=== PATIENT | male | born 1955 | race African-American/Black ===

== ENCOUNTER 2019-01-30 12:07 | Emergency (ER) | payer MEDICAID, MEDICARE ==
[~2019-01-30] VITALS: Ht 177.8 cm; Wt 77.0 kg
[~2019-01-30 12:07] MED LIST: AMLO2.5T45 PO; ASPI-986 PO; BUPR75TA3 PO; CITA10TA16 PO; DIVAL250 PO; PARO10TA87 PO; QUET25TA PO
[2019-01-30] MEDS ORDERED: ONDANSETRON HCL 4MG/2ML INJ IV STA (12:24)
[2019-01-30] MEDS ORDERED: SODIUM CHLORIDE 0.9% 1,000 ML IV ONE (12:24)
[2019-01-30] MEDS ORDERED: MORPHINE SULFATE 4 MG/ML CPJ (NOT FOR IM USE) IV STA (12:24)
[2019-01-30 13:14] LABS: EOSINOPHILS % 0.7 % (0.0-5.0); HEMATOCRIT. 43.5 % (42.0-52.0); HEMOGLOBIN. 14.4 g/dL (14.0-18.0); LYMPHOCYTES % 20.4 % (20.0-50.0); MEAN CORPUSCULAR HEMOGLOBIN 28.4 pg (28.0-32.0); MEAN CORPUSCULAR VOLUME 85.7 fL (80.0-94.0); MEAN PLATELET VOLUME 9.1 fl (7.4-10.4); MONOCYTES % 10.9 % (2.0-8.0); PLATELET 263 x1000/uL (130-400); RED BLOOD CELL COUNT 5.08 mill/uL (4.7-6.1); RED CELL DISTRIBUTION WIDTH 14.5 % (11.6-14.6)
[2019-01-30 13:19] LABS: CHLORIDE 100 mEq/L (98-107)
[2019-01-30 13:25] LABS: ETHANOL BLOOD < 10 mg/dL
[2019-01-30] MEDS ORDERED: HYDRALAZINE 20MG/ML VIAL IV ONE (14:15)
[2019-01-30 14:27] LABS: CLARITY URINE CLEAR (CLEAR); COLOR URINE YELLOW (YELLOW); KETONES URINE 1+ (NEGATIVE); LEUKOCYTE ESTERASE URINE NEGATIVE (NEGATIVE); NITRITE URINE NEGATIVE (NEGATIVE); OCCULT BLOOD URINE NEGATIVE (NEGATIVE); PH URINE 6.5 (4.5-8.0); PROTEIN URINE NEGATIVE (NEGATIVE); SPECIFIC GRAVITY URINE 1.012 (1.005-1.030)
[2019-01-30 14:49] LABS: *AMPHETAMINES SCREEN URINE PRESUMTIVE POSITIVE (NEGATIVE); *BARBITURATES SCREEN URINE NEGATIVE (NEGATIVE); *BENZODIAZEPINES SCREEN URINE NEGATIVE (NEGATIVE); *COCAINE SCREEN URINE NEGATIVE (NEGATIVE)
[2019-01-30 14:50] LABS: CANNABINOID URINE SCREEN PRESUMTIVE POSITIVE (NEGATIVE); METHADONE URINE SCREEN NEGATIVE (NEGATIVE); OPIATES URINE SCREEN PRESUMTIVE POSITIVE (NEGATIVE); PHENCYCLIDINE URINE SCREEN NEGATIVE (NEGATIVE)
[2019-01-30] MEDS ORDERED: ASPIRIN 325MG TABLET PO ONE (15:00)
[2019-01-30 17:40] VITALS: BP 169/94
== END 2019-01-30 17:40 | disposition home or self-care (01) ==
LOC: ER 12:07 → CANBEDREQ 19:44
DX: I20.0 Unstable angina (principal); I10 Essential (primary) hypertension; G89.29 Other chronic pain; M54.9 Dorsalgia, unspecified; Z79.82 Long term (current) use of aspirin; Z79.899 Other long term (current) drug therapy
CPT/HCPCS: 36415; 71045; 72131; 80053; 80305; 80320; 81003; 84484; 85025; 93005; 96374; 96375; 99284; J0360; J2270; J2405; J7030; Z7610; G0480

== ENCOUNTER 2019-08-18 08:09 | Inpatient (IN) | payer MEDICAID, MEDICARE ==
[~2019-08-18] VITALS: Ht 266.7 cm; Wt 87.1 kg
[2019-08-18] MEDS ORDERED: FUROSEMIDE 20MG/2ML VIAL IVP ONE (08:30)
[2019-08-18] MEDS ORDERED: ALBUTEROL 6.7GM HFA INHALER ORI ONE (08:30)
[2019-08-18] MEDS ORDERED: AMLODIPINE 2.5MG TABLET PO ONE (08:30)
[2019-08-18] MEDS ORDERED: AZITHROMYCIN 500 MG in DEXT 5% WATER 250 ML IV STA (09:37)
[2019-08-18] MEDS ORDERED: CEFTRIAXONE 1 G PREMIX 50 ML IV ONE (09:45)
[2019-08-18] MEDS ORDERED: ENOXAPARIN 40MG/0.4ML SYR SUBCUT SCH (10:00)
[2019-08-18] MEDS ORDERED: CLONIDINE 0.1MG TABLET PO PRN (10:00)
[2019-08-18] MEDS ORDERED: ACETAMINOPHEN 325MG TABLET PO PRN (10:00)
[2019-08-18] MEDS ORDERED: ONDANSETRON HCL 4MG/2ML INJ IV PRN (10:00)
[2019-08-18 10:14] LABS: BASOPHILS % 0.6 % (0.0-2.0); EOSINOPHILS % 0.1 % (0.0-5.0); HEMATOCRIT. 39.9 % (42.0-52.0); MEAN CORPUSCULAR HEMOGLOBIN 27.2 pg (28.0-32.0); MEAN CORPUSCULAR VOLUME 83.2 fL (80.0-94.0); MEAN PLATELET VOLUME 8.8 fl (7.4-10.4); MONOCYTES % 7.6 % (2.0-8.0); NEUTROPHILS % 80.7 % (40.0-76.0); PLATELET 157 x1000/uL (130-400); RED BLOOD CELL COUNT 4.79 mill/uL (4.7-6.1); RED CELL DISTRIBUTION WIDTH 22.4 % (11.6-14.6)
[2019-08-18 10:22] LABS: CHLORIDE 106 mEq/L (98-107)
[2019-08-18 10:25] LABS: CLARITY URINE CLEAR (CLEAR); COLOR URINE DARK YELLOW (YELLOW); KETONES URINE TRACE (NEGATIVE); LEUKOCYTE ESTERASE URINE TRACE (NEGATIVE); NITRITE URINE NEGATIVE (NEGATIVE); OCCULT BLOOD URINE 1+ (NEGATIVE); PROTEIN URINE 2+ (NEGATIVE); SPECIFIC GRAVITY URINE 1.031 (1.005-1.030)
[2019-08-18 10:27] LABS: ETHANOL BLOOD < 10 mg/dL
[2019-08-18 10:31] LABS: CREATINE KINASE 195 IU/L (39-308)
[2019-08-18 10:34] LABS: D-DIMER 11.46 mg/L FEU (<0.50); INR 1.8; PROTHROMBIN TIME 18.1 sec (9.6-11.0); VALPROIC ACID < 3.0 ug/mL (50-100)
[2019-08-18 10:35] LABS: *AMPHETAMINES SCREEN URINE PRESUMTIVE POSITIVE (NEGATIVE); *BARBITURATES SCREEN URINE NEGATIVE (NEGATIVE); *BENZODIAZEPINES SCREEN URINE NEGATIVE (NEGATIVE); *COCAINE SCREEN URINE NEGATIVE (NEGATIVE)
[2019-08-18 10:36] LABS: CANNABINOID URINE SCREEN NEGATIVE (NEGATIVE); METHADONE URINE SCREEN NEGATIVE (NEGATIVE); OPIATES URINE SCREEN NEGATIVE (NEGATIVE); PHENCYCLIDINE URINE SCREEN NEGATIVE (NEGATIVE)
[2019-08-18 10:43] LABS: PLATELET ESTIMATE NORMAL
[2019-08-18] MEDS ORDERED: ASPIRIN 325MG EC TABLET PO NR (11:00)
[2019-08-18] MEDS ORDERED: AMLODIPINE 2.5MG TABLET PO SCH (12:00)
[2019-08-18] MEDS ORDERED: AZITHROMYCIN 500 MG in DEXT 5% WATER 250 ML IV SCH (12:00)
[2019-08-18] MEDS ORDERED: CEFTRIAXONE 1 G PREMIX 50 ML IV SCH (12:00)
[2019-08-18 16:05] VITALS: BP_SYST 136; BP_SYST 150; BP_DIAS 94
[2019-08-18] MEDS: AMLODIPINE 2.5MG TABLET PO SCH ×2 (16:48→22:57)
[2019-08-18] MEDS: DIVALPROEX SODIUM 250MG DR TABLET PO SCH ×2 (16:48→17:00)
[2019-08-18] MEDS: ENOXAPARIN 80MG/0.8ML SYR SUBCUT SCH ×2 (16:49→22:57)
[2019-08-18 20:00] VITALS: BP_SYST 103; BP_SYST 136; BP_DIAS 69; BP_DIAS 92
[2019-08-18] MEDS ORDERED: QUETIAPINE FUMARATE 50MG TABLET PO SCH (21:00)
[2019-08-18 23:52] VITALS: BP 121/82
[2019-08-19] VITALS: BP 127/55
[2019-08-19 01:54] VITALS: BP 116/69
[2019-08-19 02:16] LABS: INR 1.7; PROTHROMBIN TIME 17.6 sec (9.6-11.0)
[2019-08-19 02:22] LABS: BG BASE EXCESS 0.2 mmol/L (-2.0-2.0); BG CARBOXYHEMOGLOBIN 1.6 % (0.5-1.5); BG DEOXYHEMOGLOBIN 3.9 % (0.0-5.0); BG FRACTION INSPIRED OXYGEN 32; BG HCO3 ACT 23.7 mmol/L (22.0-26.0); BG METHEMOGLOBIN 0.2 % (0.0-1.5); BG OXYHEMOGLOBIN 94.3 % (94.0-97.0); BG PCO2 34.5 mmHg (35.0-45.0); BG PH 7.454 (7.350-7.450); BG PO2 80.7 mmHg (75.0-100.0); BG SAMPLE SITE RIGHT BRACHIAL; BG VENT MODE NASAL CANNULA
[2019-08-19 04:00] VITALS: BP 97/56
[2019-08-19 05:15] VITALS: BP 108/64
[2019-08-19 08:00] VITALS: BP 108/80
[2019-08-19 08:03] LABS: BASOPHILS % 0.2 % (0.0-2.0); HEMOGLOBIN. 10.9 g/dL (14.0-18.0); LYMPHOCYTES % 7.7 % (20.0-50.0); MEAN CORPUSCULAR HEMOGLOBIN 27.6 pg (28.0-32.0); MEAN CORPUSCULAR VOLUME 83.2 fL (80.0-94.0); MEAN PLATELET VOLUME 8.7 fl (7.4-10.4); NEUTROPHILS % 84.1 % (40.0-76.0); PLATELET 126 x1000/uL (130-400); RED BLOOD CELL COUNT 3.96 mill/uL (4.7-6.1)
[2019-08-19 08:11] LABS: CHLORIDE 108 mEq/L (98-107)
[2019-08-19] MEDS: AMLODIPINE 2.5MG TABLET PO SCH ×2 (09:00→20:52)
[2019-08-19] MEDS ORDERED: CITALOPRAM HYDROBROMIDE 10MG TABLET PO SCH (09:00)
[2019-08-19] MEDS: ASPIRIN 81MG TABLET PO SCH (09:00)
[2019-08-19] MEDS ORDERED: BUPROPION HCL 75MG TABLET PO SCH (09:00)
[2019-08-19] MEDS ORDERED: PAROXETINE HCL 10MG TABLET PO SCH (09:00)
[2019-08-19] MEDS: ENOXAPARIN 80MG/0.8ML SYR SUBCUT SCH (09:08)
[2019-08-19] MEDS: FUROSEMIDE 40MG/4ML VIAL IVP SCH (09:08)
[2019-08-19] MEDS: AZITHROMYCIN 500 MG in DEXT 5% WATER 250 ML IV SCH (11:02)
[2019-08-19] MEDS ORDERED: IOHEXOL-350 100 ML BOTTLE ONE (11:13)
[2019-08-19 11:48] LABS: HEPATITIS B SURFACE ANTIGEN NEGATIVE
[2019-08-19 11:49] VITALS: BP 131/86
[2019-08-19 12:17] LABS: HEPATITIS A AB IGM NEGATIVE (NEGATIVE)
[2019-08-19 12:55] LABS: VITAMIN B12 SERUM >2000 pg/mL pg/mL (211-911)
[2019-08-19] MEDS: CEFTRIAXONE 1 G PREMIX 50 ML IV SCH (12:58)
[2019-08-19] MEDS: DEXT 5%/0.9% NACL 1,000 ML IV SCH (13:00)
[2019-08-19 18:12] LABS: T4 FREE 1.15 ng/dL (0.76-1.46)
[2019-08-19 18:24] LABS: FOLIC ACID (FOLATE) SERUM 4.6 ng/mL (>5.38)
[2019-08-19] MEDS: ENOXAPARIN 100MG/ML SYR SUBCUT SCH (20:54)
[2019-08-20] VITALS: BP 125/93
[2019-08-20] MEDS: DEXT 5%/0.9% NACL 1,000 ML IV SCH (02:46)
[2019-08-20 04:00] VITALS: BP 125/90
[2019-08-20 07:18] LABS: CHLORIDE 109 mEq/L (98-107)
[2019-08-20 07:23] LABS: BASOPHILS % 0.4 % (0.0-2.0); EOSINOPHILS % 0.3 % (0.0-5.0); HEMATOCRIT. 34.8 % (42.0-52.0); HEMOGLOBIN. 11.5 g/dL (14.0-18.0); LYMPHOCYTES % 11.8 % (20.0-50.0); MEAN CORPUSCULAR HEMOGLOBIN 27.8 pg (28.0-32.0); MEAN CORPUSCULAR VOLUME 84.2 fL (80.0-94.0); MEAN PLATELET VOLUME 8.8 fl (7.4-10.4); MONOCYTES % 8.2 % (2.0-8.0); NEUTROPHILS % 79.3 % (40.0-76.0); PLATELET 144 x1000/uL (130-400); RED BLOOD CELL COUNT 4.13 mill/uL (4.7-6.1); RED CELL DISTRIBUTION WIDTH 23.2 % (11.6-14.6)
[2019-08-20 07:26] LABS: LDL CHOLESTEROL 79 mg/dL (5-100)
[2019-08-20 07:27] LABS: HDL CHOLESTEROL 13 mg/dL (40-59)
[2019-08-20 08:00] VITALS: BP 131/93
[2019-08-20] MEDS: CLOPIDOGREL 75MG TABLET PO SCH ×2 (09:15→09:18)
[2019-08-20] MEDS: CITALOPRAM HYDROBROMIDE 10MG TABLET PO SCH (09:15)
[2019-08-20] MEDS: FUROSEMIDE 40MG/4ML VIAL IVP SCH (09:15)
[2019-08-20] MEDS: CEFTRIAXONE 1 G PREMIX 50 ML IV SCH (09:16)
[2019-08-20] MEDS: ENOXAPARIN 100MG/ML SYR SUBCUT SCH ×2 (09:16→21:03)
[2019-08-20] MEDS: AMLODIPINE 2.5MG TABLET PO SCH ×2 (09:16→21:01)
[2019-08-20] MEDS: ASPIRIN 81MG TABLET PO SCH (09:17)
[2019-08-20] MEDS: AZITHROMYCIN 500 MG in DEXT 5% WATER 250 ML IV SCH (11:10)
[2019-08-20] MEDS: BUPROPION HCL 75MG TABLET PO SCH (11:24)
[2019-08-20] MEDS: LOSARTAN POTASSIUM 25 MG TABLET PO SCH (11:25)
[2019-08-20 12:00] VITALS: BP 107/74
[2019-08-20 16:00] VITALS: BP 93/56
[2019-08-20] MEDS: FOLIC ACID 1MG TABLET PO SCH (17:59)
[2019-08-20 20:00] VITALS: BP 107/71
[2019-08-20] MEDS: CARVEDILOL 6.25 MG TABLET PO SCH (21:00)
[2019-08-20] MEDS: LACTULOSE 20G/30ML UDC PO SCH (21:03)
[2019-08-20] MEDS: QUETIAPINE FUMARATE 50MG TABLET PO SCH (21:05)
[2019-08-21] VITALS: BP 108/67
[2019-08-21 04:00] VITALS: BP 103/72
[2019-08-21] MEDS: DEXT 5%/0.9% NACL 1,000 ML IV SCH ×2 (04:43→23:57)
[2019-08-21] MEDS: LACTULOSE 20G/30ML UDC PO SCH ×3 (06:15→21:08)
[2019-08-21 07:19] LABS: CHLORIDE 106 mEq/L (98-107)
[2019-08-21 07:25] LABS: BASOPHILS % 0.5 % (0.0-2.0); EOSINOPHILS % 0.9 % (0.0-5.0); HEMATOCRIT. 33.9 % (42.0-52.0); HEMOGLOBIN. 11.2 g/dL (14.0-18.0); LYMPHOCYTES % 15.9 % (20.0-50.0); MEAN CORPUSCULAR VOLUME 84.3 fL (80.0-94.0); MEAN PLATELET VOLUME 8.6 fl (7.4-10.4); MONOCYTES % 8.3 % (2.0-8.0); NEUTROPHILS % 74.4 % (40.0-76.0); PLATELET 152 x1000/uL (130-400); RED BLOOD CELL COUNT 4.02 mill/uL (4.7-6.1); RED CELL DISTRIBUTION WIDTH 22.8 % (11.6-14.6)
[2019-08-21 07:46] LABS: LDL CHOLESTEROL 66 mg/dL (5-100)
[2019-08-21 07:48] LABS: HDL CHOLESTEROL 15 mg/dL (40-59)
[2019-08-21 08:00] VITALS: BP 124/74
[2019-08-21] MEDS: CEFTRIAXONE 1 G PREMIX 50 ML IV SCH (09:02)
[2019-08-21] MEDS: LOSARTAN POTASSIUM 25 MG TABLET PO SCH (09:03)
[2019-08-21] MEDS: AMLODIPINE 2.5MG TABLET PO SCH (09:03)
[2019-08-21] MEDS: CITALOPRAM HYDROBROMIDE 10MG TABLET PO SCH (09:03)
[2019-08-21] MEDS: FOLIC ACID 1MG TABLET PO SCH (09:03)
[2019-08-21] MEDS: ASPIRIN 81MG TABLET PO SCH (09:03)
[2019-08-21] MEDS: FUROSEMIDE 40MG/4ML VIAL IVP SCH (09:03)
[2019-08-21] MEDS: CARVEDILOL 6.25 MG TABLET PO SCH ×2 (09:03→21:08)
[2019-08-21] MEDS: CLOPIDOGREL 75MG TABLET PO SCH (09:04)
[2019-08-21] MEDS: BUPROPION HCL 75MG TABLET PO SCH (09:04)
[2019-08-21] MEDS: AZITHROMYCIN 500 MG in DEXT 5% WATER 250 ML IV SCH (09:47)
[2019-08-21] MEDS: ENOXAPARIN 100MG/ML SYR SUBCUT SCH ×2 (10:35→21:08)
[2019-08-21 12:00] VITALS: BP 99/51
[2019-08-21 16:00] VITALS: BP 99/59
[2019-08-21 20:00] VITALS: BP 112/72
[2019-08-21] MEDS: QUETIAPINE FUMARATE 50MG TABLET PO SCH (21:07)
[2019-08-22] VITALS (7 sets, daily range): BP systolic 97–110; BP diastolic 56–79
[2019-08-22] MEDS: LACTULOSE 20G/30ML UDC PO SCH ×3 (06:06→21:10)
[2019-08-22] MEDS: LOSARTAN POTASSIUM 25 MG TABLET PO SCH (09:00)
[2019-08-22] MEDS: CARVEDILOL 6.25 MG TABLET PO SCH ×2 (09:00→20:38)
[2019-08-22] MEDS: CEFTRIAXONE 1 G PREMIX 50 ML IV SCH (09:08)
[2019-08-22] MEDS: FUROSEMIDE 40MG/4ML VIAL IVP SCH (09:08)
[2019-08-22] MEDS: ENOXAPARIN 100MG/ML SYR SUBCUT SCH ×2 (10:31→21:10)
[2019-08-22] MEDS: CLOPIDOGREL 75MG TABLET PO SCH (10:32)
[2019-08-22] MEDS: FOLIC ACID 1MG TABLET PO SCH (10:32)
[2019-08-22] MEDS: ASPIRIN 81MG TABLET PO SCH (10:32)
[2019-08-22] MEDS: CITALOPRAM HYDROBROMIDE 10MG TABLET PO SCH (10:32)
[2019-08-22] MEDS: BUPROPION HCL 75MG TABLET PO SCH (10:32)
[2019-08-22] MEDS: QUETIAPINE FUMARATE 50MG TABLET PO SCH (21:10)
[2019-08-22] MEDS: DEXT 5%/0.9% NACL 1,000 ML IV SCH (21:36)
[2019-08-23] VITALS: BP 116/76
[2019-08-23 04:00] VITALS: BP 123/86
[2019-08-23] MEDS: LACTULOSE 20G/30ML UDC PO SCH ×3 (05:33→21:32)
[2019-08-23 07:01] LABS: BASOPHILS % 0.9 % (0.0-2.0); HEMOGLOBIN. 10.6 g/dL (14.0-18.0); LYMPHOCYTES % 19.6 % (20.0-50.0); MEAN CORPUSCULAR HEMOGLOBIN 27.7 pg (28.0-32.0); MEAN CORPUSCULAR VOLUME 83.8 fL (80.0-94.0); MEAN PLATELET VOLUME 8.5 fl (7.4-10.4); MONOCYTES % 11.3 % (2.0-8.0); NEUTROPHILS % 64.2 % (40.0-76.0); PLATELET 169 x1000/uL (130-400); RED BLOOD CELL COUNT 3.81 mill/uL (4.7-6.1); RED CELL DISTRIBUTION WIDTH 22.3 % (11.6-14.6)
[2019-08-23 08:00] VITALS: BP 127/91
[2019-08-23] MEDS: FUROSEMIDE 40MG/4ML VIAL IVP SCH (08:29)
[2019-08-23] MEDS: LOSARTAN POTASSIUM 25 MG TABLET PO SCH (08:30)
[2019-08-23] MEDS: CITALOPRAM HYDROBROMIDE 10MG TABLET PO SCH (08:30)
[2019-08-23] MEDS: CARVEDILOL 6.25 MG TABLET PO SCH ×2 (08:30→21:46)
[2019-08-23] MEDS: ENOXAPARIN 40MG/0.4ML SYR SUBCUT SCH (08:30)
[2019-08-23] MEDS: FOLIC ACID 1MG TABLET PO SCH (08:30)
[2019-08-23] MEDS: ASPIRIN 81MG TABLET PO SCH (08:30)
[2019-08-23] MEDS: CLOPIDOGREL 75MG TABLET PO SCH (08:30)
[2019-08-23] MEDS: BUPROPION HCL 75MG TABLET PO SCH (08:30)
[2019-08-23 08:42] LABS: CHLORIDE 106 mEq/L (98-107)
[2019-08-23] MEDS ORDERED: BARIUM SULFATE 176 GM SUSP.RECON ONE (09:27)
[2019-08-23 12:00] VITALS: BP 107/70
[2019-08-23] MEDS: CEFTRIAXONE 1 G PREMIX 50 ML IV SCH (13:06)
[2019-08-23 16:00] VITALS: BP 112/86
[2019-08-23 20:00] VITALS: BP 120/86
[2019-08-23] MEDS: QUETIAPINE FUMARATE 50MG TABLET PO SCH (21:00)
[2019-08-24] VITALS: BP 120/83
[2019-08-24 04:00] VITALS: BP 128/85
[2019-08-24] MEDS: LACTULOSE 20G/30ML UDC PO SCH ×3 (06:00→21:12)
[2019-08-24 07:57] VITALS: BP 134/86
[2019-08-24] MEDS: FUROSEMIDE 40MG/4ML VIAL IVP SCH (10:18)
[2019-08-24] MEDS: CLOPIDOGREL 75MG TABLET PO SCH (10:18)
[2019-08-24] MEDS: BUPROPION HCL 75MG TABLET PO SCH (10:18)
[2019-08-24] MEDS: CITALOPRAM HYDROBROMIDE 10MG TABLET PO SCH (10:18)
[2019-08-24] MEDS: CARVEDILOL 6.25 MG TABLET PO SCH ×2 (10:18→20:33)
[2019-08-24] MEDS: LOSARTAN POTASSIUM 25 MG TABLET PO SCH (10:18)
[2019-08-24] MEDS: ASPIRIN 81MG TABLET PO SCH (10:18)
[2019-08-24] MEDS: ENOXAPARIN 40MG/0.4ML SYR SUBCUT SCH (10:19)
[2019-08-24] MEDS: FOLIC ACID 1MG TABLET PO SCH (10:30)
[2019-08-24 12:00] VITALS: BP 123/90
[2019-08-24] MEDS: CEFTRIAXONE 1 G PREMIX 50 ML IV SCH (15:32)
[2019-08-24 16:00] VITALS: BP 132/96
[2019-08-24 20:00] VITALS: BP 145/100
[2019-08-24] MEDS: QUETIAPINE FUMARATE 50MG TABLET PO SCH (20:34)
[2019-08-25] VITALS: BP 118/72
[2019-08-25 04:00] VITALS: BP 116/86
[2019-08-25] MEDS: LACTULOSE 20G/30ML UDC PO SCH ×3 (06:00→22:00)
[2019-08-25 08:00] VITALS: BP 145/88
[2019-08-25] MEDS: CITALOPRAM HYDROBROMIDE 10MG TABLET PO SCH (09:24)
[2019-08-25] MEDS: LOSARTAN POTASSIUM 25 MG TABLET PO SCH (09:24)
[2019-08-25] MEDS: BUPROPION HCL 75MG TABLET PO SCH (09:24)
[2019-08-25] MEDS: CLOPIDOGREL 75MG TABLET PO SCH (09:24)
[2019-08-25] MEDS: ASPIRIN 81MG TABLET PO SCH (09:24)
[2019-08-25] MEDS: FOLIC ACID 1MG TABLET PO SCH (09:24)
[2019-08-25] MEDS: FUROSEMIDE 40MG/4ML VIAL IVP SCH (09:25)
[2019-08-25] MEDS: ENOXAPARIN 40MG/0.4ML SYR SUBCUT SCH (09:25)
[2019-08-25] MEDS: CARVEDILOL 6.25 MG TABLET PO SCH ×2 (09:25→20:47)
[2019-08-25 12:00] VITALS: BP 138/92
[2019-08-25 16:00] VITALS: BP 140/80
[2019-08-25] MEDS: CEFTRIAXONE 1 G PREMIX 50 ML IV SCH (16:29)
[2019-08-25 20:00] VITALS: BP 147/98
[2019-08-25] MEDS: QUETIAPINE FUMARATE 50MG TABLET PO SCH (20:48)
[2019-08-26] VITALS: BP 105/67
[2019-08-26 04:00] VITALS: BP 128/87
[2019-08-26] MEDS: LACTULOSE 20G/30ML UDC PO SCH ×3 (06:00→20:22)
[2019-08-26 07:36] LABS: BASOPHILS % 1.3 % (0.0-2.0); EOSINOPHILS % 3.8 % (0.0-5.0); HEMATOCRIT. 37.5 % (42.0-52.0); HEMOGLOBIN. 12.3 g/dL (14.0-18.0); LYMPHOCYTES % 25.1 % (20.0-50.0); MEAN CORPUSCULAR HEMOGLOBIN 27.3 pg (28.0-32.0); MEAN CORPUSCULAR VOLUME 83.1 fL (80.0-94.0); MEAN PLATELET VOLUME 8.4 fl (7.4-10.4); MONOCYTES % 11.1 % (2.0-8.0); NEUTROPHILS % 58.7 % (40.0-76.0); PLATELET 224 x1000/uL (130-400); RED BLOOD CELL COUNT 4.52 mill/uL (4.7-6.1); RED CELL DISTRIBUTION WIDTH 21.6 % (11.6-14.6)
[2019-08-26 07:43] LABS: CHLORIDE 103 mEq/L (98-107)
[2019-08-26 07:59] VITALS: BP 128/90
[2019-08-26] MEDS: BUPROPION HCL 75MG TABLET PO SCH (09:49)
[2019-08-26] MEDS: FUROSEMIDE 40MG/4ML VIAL IVP SCH (09:49)
[2019-08-26] MEDS: ASPIRIN 81MG TABLET PO SCH (09:49)
[2019-08-26] MEDS: LOSARTAN POTASSIUM 25 MG TABLET PO SCH (09:50)
[2019-08-26] MEDS: CARVEDILOL 6.25 MG TABLET PO SCH ×2 (09:50→20:22)
[2019-08-26] MEDS: FOLIC ACID 1MG TABLET PO SCH (09:50)
[2019-08-26] MEDS: CITALOPRAM HYDROBROMIDE 10MG TABLET PO SCH (09:50)
[2019-08-26] MEDS: CLOPIDOGREL 75MG TABLET PO SCH (09:50)
[2019-08-26] MEDS: ENOXAPARIN 40MG/0.4ML SYR SUBCUT SCH (09:50)
[2019-08-26 11:55] VITALS: BP 108/71
[2019-08-26 16:00] VITALS: BP 122/89
[2019-08-26] MEDS: CEFTRIAXONE 1 G PREMIX 50 ML IV SCH (16:26)
[2019-08-26 20:00] VITALS: BP 123/87
[2019-08-26] MEDS: QUETIAPINE FUMARATE 50MG TABLET PO SCH (20:22)
[2019-08-27] VITALS: BP 103/71
[2019-08-27] MEDS ORDERED: DEXAMETHASONE 4MG/ML 1ML VIAL IV SCH
[2019-08-27 04:00] VITALS: BP 116/78
[2019-08-27] MEDS: LACTULOSE 20G/30ML UDC PO SCH ×2 (06:08→13:11)
[2019-08-27 07:14] LABS: FOLIC ACID (FOLATE) SERUM 11.9 ng/mL (>5.38)
[2019-08-27 07:51] VITALS: BP 139/98
[2019-08-27] MEDS: BUPROPION HCL 75MG TABLET PO SCH (08:44)
[2019-08-27] MEDS: CARVEDILOL 6.25 MG TABLET PO SCH ×2 (08:44→20:16)
[2019-08-27] MEDS: LOSARTAN POTASSIUM 25 MG TABLET PO SCH (08:44)
[2019-08-27] MEDS: FOLIC ACID 1MG TABLET PO SCH (08:44)
[2019-08-27] MEDS: CITALOPRAM HYDROBROMIDE 10MG TABLET PO SCH (08:44)
[2019-08-27] MEDS: FUROSEMIDE 40MG/4ML VIAL IVP SCH (08:44)
[2019-08-27 12:00] VITALS: BP 114/78
[2019-08-27] MEDS: DEXAMETHASONE 4MG/ML 1ML VIAL IV SCH ×3 (13:11→23:54)
[2019-08-27] MEDS: CEFTRIAXONE 1 G PREMIX 50 ML IV SCH (15:59)
[2019-08-27 16:00] VITALS: BP 133/90
[2019-08-27 20:00] VITALS: BP 130/84
[2019-08-27] MEDS: QUETIAPINE FUMARATE 50MG TABLET PO SCH (20:16)
[2019-08-28] VITALS: BP 128/70
[2019-08-28 04:00] VITALS: BP 121/87
[2019-08-28] MEDS: DEXAMETHASONE 4MG/ML 1ML VIAL IV SCH ×3 (06:13→17:52)
[2019-08-28 08:00] VITALS: BP 136/96
[2019-08-28] MEDS: CARVEDILOL 6.25 MG TABLET PO SCH ×2 (08:47→20:37)
[2019-08-28] MEDS: CITALOPRAM HYDROBROMIDE 10MG TABLET PO SCH (08:47)
[2019-08-28] MEDS: FOLIC ACID 1MG TABLET PO SCH (08:48)
[2019-08-28] MEDS: FUROSEMIDE 40MG/4ML VIAL IVP SCH (08:48)
[2019-08-28] MEDS: BUPROPION HCL 75MG TABLET PO SCH (08:48)
[2019-08-28] MEDS: LOSARTAN POTASSIUM 25 MG TABLET PO SCH (08:48)
[2019-08-28 11:25] LABS: INR 1.3; PROTHROMBIN TIME 13.3 sec (9.6-11.0)
[2019-08-28 12:00] VITALS: BP 127/84
[2019-08-28] MEDS ORDERED: MAGNESIUM SULFATE 1GM/2ML VIAL IV NR (12:00)
[2019-08-28] MEDS: LACTULOSE 20G/30ML UDC PO SCH ×3 (12:27→20:41)
[2019-08-28] MEDS ORDERED: MAGNESIUM 1 G PREMIX 100 ML IV NR (12:30)
[2019-08-28 16:00] VITALS: BP 132/83
[2019-08-28 20:00] VITALS: BP 140/80
[2019-08-28] MEDS: QUETIAPINE FUMARATE 50MG TABLET PO SCH (20:37)
[2019-08-29] VITALS: BP 144/86
[2019-08-29] MEDS: DEXAMETHASONE 4MG/ML 1ML VIAL IV SCH ×4 (00:28→17:42)
[2019-08-29 04:00] VITALS: BP 127/80
[2019-08-29 08:00] VITALS: BP 140/100
[2019-08-29] MEDS: FOLIC ACID 1MG TABLET PO SCH (09:36)
[2019-08-29] MEDS: BUPROPION HCL 75MG TABLET PO SCH (09:36)
[2019-08-29] MEDS: LOSARTAN POTASSIUM 25 MG TABLET PO SCH (09:36)
[2019-08-29] MEDS: FUROSEMIDE 40MG/4ML VIAL IVP SCH (09:36)
[2019-08-29] MEDS: CITALOPRAM HYDROBROMIDE 10MG TABLET PO SCH (09:36)
[2019-08-29] MEDS: CARVEDILOL 6.25 MG TABLET PO SCH ×2 (09:36→20:57)
[2019-08-29 12:00] VITALS: BP 132/95
[2019-08-29] MEDS ORDERED: NA PHOS,M-B/NA PHOS,DI-BA ENEMA 118ML PR NR (13:00)
[2019-08-29] MEDS ORDERED: SORBITOL 70% SOLN 30ML PO NR (13:00)
[2019-08-29 16:00] VITALS: BP 139/89
[2019-08-29 20:00] VITALS: BP 144/86
[2019-08-29] MEDS: QUETIAPINE FUMARATE 50MG TABLET PO SCH (20:57)
[2019-08-30] VITALS (58 sets, daily range): BP systolic 50–167; BP diastolic 0–107
[2019-08-30] MEDS: DEXAMETHASONE 4MG/ML 1ML VIAL IV SCH ×5 (00:06→23:37)
[2019-08-30] MEDS ORDERED: BACITRACIN 50,000 UNITS/VIAL ONE (06:26)
[2019-08-30] MEDS ORDERED: THROMBIN (BOVINE) 5000 UNITS/VIAL TOP ONE (06:26)
[2019-08-30] MEDS ORDERED: LIDOCAINE HCL/EPINEPHRINE 1%-EPI 1:100,000 20 ML VIAL ONE (06:26)
[2019-08-30] MEDS ORDERED: VASOPRESSIN 20 UNIT/ML 1ML ONE (07:03)
[2019-08-30] MEDS ORDERED: PROPOFOL 200MG/20ML VIAL IV ONE (07:06)
[2019-08-30] MEDS ORDERED: ROCURONIUM BROMIDE 10MG/ML VIAL 5ML IV ONE ×2 (07:06→09:03)
[2019-08-30 07:10] LABS: BASOPHILS % 0.2 % (0.0-2.0); HEMATOCRIT. 37.1 % (42.0-52.0); HEMOGLOBIN. 11.9 g/dL (14.0-18.0); LYMPHOCYTES % 10.5 % (20.0-50.0); MEAN CORPUSCULAR HEMOGLOBIN 26.5 pg (28.0-32.0); MEAN CORPUSCULAR VOLUME 82.9 fL (80.0-94.0); MEAN PLATELET VOLUME 8.5 fl (7.4-10.4); MONOCYTES % 2.8 % (2.0-8.0); NEUTROPHILS % 86.5 % (40.0-76.0); PLATELET 310 x1000/uL (130-400); RED BLOOD CELL COUNT 4.47 mill/uL (4.7-6.1); RED CELL DISTRIBUTION WIDTH 21.1 % (11.6-14.6)
[2019-08-30 07:15] LABS: CHLORIDE 103 mEq/L (98-107)
[2019-08-30] MEDS ORDERED: CEFAZOLIN SODIUM 1000MG/VIAL ONE (07:34)
[2019-08-30] MEDS ORDERED: HYDROMORPHONE HCL/PF 2MG/ML (OR) ONE (07:39)
[2019-08-30] MEDS ORDERED: GLYCOPYRROLATE 0.2 MG/ML 2ML VIAL ONE ×3 (08:20→10:04)
[2019-08-30] MEDS: FUROSEMIDE 40MG/4ML VIAL IVP SCH (08:30)
[2019-08-30] MEDS: LOSARTAN POTASSIUM 25 MG TABLET PO SCH (08:30)
[2019-08-30] MEDS: CITALOPRAM HYDROBROMIDE 10MG TABLET PO SCH (08:30)
[2019-08-30] MEDS: CARVEDILOL 6.25 MG TABLET PO SCH ×2 (08:30→20:11)
[2019-08-30] MEDS: FOLIC ACID 1MG TABLET PO SCH (08:30)
[2019-08-30] MEDS: BUPROPION HCL 75MG TABLET PO SCH (08:30)
[2019-08-30] MEDS ORDERED: DOPAMINE 400MG/250ML PREMIX 250 ML IV ONE (08:38)
[2019-08-30] MEDS ORDERED: NA PHOS,M-B/NA PHOS,DI-BA ENEMA 118ML PR PRN (09:00)
[2019-08-30] MEDS ORDERED: NEOSTIGMINE METHYLSULFATE 1MG/ML 10 ML VIAL ONE (10:00)
[2019-08-30] MEDS ORDERED: MORPHINE SULFATE 4 MG/ML CPJ (NOT FOR IM USE) IV PRN (10:15)
[2019-08-30] MEDS: DEXT 5%/LACTATED RINGERS 1,000 ML IV SCH (11:09)
[2019-08-30] MEDS: NICARDIPINE 100 MG in SODIUM CHLORIDE 0.9% 60 ML IV PRN (11:56)
[2019-08-30] MEDS ORDERED: DIPHENHYDRAMINE INJ IV PRN (12:00)
[2019-08-30] MEDS ORDERED: NALOXONE INJ IV PRN (12:00)
[2019-08-30] MEDS ORDERED: HYDROMORPHONE PCA 10MG/50ML IV PRN (12:00)
[2019-08-30] MEDS ORDERED: ONDANSETRON INJ IV PRN (12:00)
[2019-08-30] MEDS: CEFAZOLIN 1000MG PREMIX 50 ML IV SCH ×2 (13:47→21:01)
[2019-08-30] MEDS ORDERED: CEFAZOLIN SODIUM 1000MG/VIAL IV SCH (14:00)
[2019-08-30] MEDS: QUETIAPINE FUMARATE 50MG TABLET PO SCH (20:11)
[2019-08-31] VITALS (101 sets, daily range): BP systolic -29–185; BP diastolic -30–92
[2019-08-31] MEDS: DEXT 5%/LACTATED RINGERS 1,000 ML IV SCH ×2 (01:22→14:30)
[2019-08-31] MEDS: NICARDIPINE 100 MG in SODIUM CHLORIDE 0.9% 60 ML IV PRN (03:47)
[2019-08-31] MEDS: CEFAZOLIN 1000MG PREMIX 50 ML IV SCH ×3 (05:29→21:09)
[2019-08-31] MEDS: DEXAMETHASONE 4MG/ML 1ML VIAL IV SCH ×2 (05:30→12:24)
[2019-08-31 05:55] LABS: TOTAL IRON BINDING CAPACITY 280 ug/dL (250-450)
[2019-08-31] MEDS: FUROSEMIDE 40MG/4ML VIAL IVP SCH (10:34)
[2019-08-31] MEDS: BUPROPION HCL 75MG TABLET PO SCH (16:55)
[2019-08-31] MEDS: LOSARTAN POTASSIUM 25 MG TABLET PO SCH (16:56)
[2019-08-31] MEDS: CARVEDILOL 6.25 MG TABLET PO SCH ×2 (16:56→21:09)
[2019-08-31] MEDS: CITALOPRAM HYDROBROMIDE 10MG TABLET PO SCH (16:57)
[2019-08-31] MEDS: FOLIC ACID 1MG TABLET PO SCH (16:57)
[2019-08-31] MEDS: QUETIAPINE FUMARATE 50MG TABLET PO SCH (21:09)
[2019-09-01] VITALS (53 sets, daily range): BP systolic 95–147; BP diastolic 56–123
[2019-09-01] MEDS: NICARDIPINE 100 MG in SODIUM CHLORIDE 0.9% 60 ML IV PRN (01:06)
[2019-09-01] MEDS: CEFAZOLIN 1000MG PREMIX 50 ML IV SCH ×2 (05:19→14:31)
[2019-09-01] MEDS: CITALOPRAM HYDROBROMIDE 10MG TABLET PO SCH (08:53)
[2019-09-01] MEDS: FOLIC ACID 1MG TABLET PO SCH (08:53)
[2019-09-01] MEDS: CARVEDILOL 6.25 MG TABLET PO SCH ×2 (08:53→21:33)
[2019-09-01] MEDS: BUPROPION HCL 75MG TABLET PO SCH (08:53)
[2019-09-01] MEDS: FUROSEMIDE 40MG TABLET PO SCH (08:54)
[2019-09-01] MEDS: LOSARTAN POTASSIUM 25 MG TABLET PO SCH (08:55)
[2019-09-01] MEDS: ASCORBIC ACID 500 MG TABLET PO SCH (17:27)
[2019-09-01] MEDS: FERROUS SULFATE 325MG TABLET PO SCH (17:27)
[2019-09-01] MEDS: QUETIAPINE FUMARATE 50MG TABLET PO SCH (21:34)
[2019-09-02] VITALS: BP 149/95
[2019-09-02 04:00] VITALS: BP 142/102
[2019-09-02 08:00] VITALS: BP 150/101
[2019-09-02] MEDS: BUPROPION HCL 75MG TABLET PO SCH ×2 (08:48→10:17)
[2019-09-02] MEDS: ASCORBIC ACID 500 MG TABLET PO SCH ×3 (08:49→17:23)
[2019-09-02] MEDS: LOSARTAN POTASSIUM 25 MG TABLET PO SCH (08:49)
[2019-09-02] MEDS: FUROSEMIDE 40MG TABLET PO SCH (08:49)
[2019-09-02] MEDS: FOLIC ACID 1MG TABLET PO SCH (08:49)
[2019-09-02] MEDS: CARVEDILOL 6.25 MG TABLET PO SCH ×2 (08:49→19:49)
[2019-09-02] MEDS: CITALOPRAM HYDROBROMIDE 10MG TABLET PO SCH ×2 (08:49→10:17)
[2019-09-02] MEDS: FERROUS SULFATE 325MG TABLET PO SCH ×3 (08:49→17:23)
[2019-09-02] MEDS: DOCUSATE SODIUM 250MG CAPSULE PO SCH ×2 (11:30→17:00)
[2019-09-02 12:00] VITALS: BP 136/97
[2019-09-02 16:00] VITALS: BP 119/78
[2019-09-02] MEDS: QUETIAPINE FUMARATE 50MG TABLET PO SCH (19:49)
[2019-09-02] MEDS: HYDROCODONE/ACETAMINOPHEN 10/325MG TABLET PO PRN (19:49)
[2019-09-02 20:00] VITALS: BP 121/79
[2019-09-02] MEDS: LACTULOSE 20G/30ML UDC PO SCH (23:24)
[2019-09-03] VITALS: BP 100/63
[2019-09-03 04:00] VITALS: BP 114/71
[2019-09-03] MEDS: HYDROCODONE/ACETAMINOPHEN 5/325MG TABLET PO PRN (04:26)
[2019-09-03] MEDS: LACTULOSE 20G/30ML UDC PO SCH ×4 (06:06→21:27)
[2019-09-03 08:00] VITALS: BP 119/79
[2019-09-03] MEDS: FERROUS SULFATE 325MG TABLET PO SCH ×4 (09:20→17:53)
[2019-09-03] MEDS: ASCORBIC ACID 500 MG TABLET PO SCH ×4 (09:21→17:53)
[2019-09-03] MEDS: FOLIC ACID 1MG TABLET PO SCH (09:21)
[2019-09-03] MEDS: FUROSEMIDE 40MG TABLET PO SCH (09:21)
[2019-09-03] MEDS: DOCUSATE SODIUM 250MG CAPSULE PO SCH ×2 (09:21→17:52)
[2019-09-03] MEDS: BUPROPION HCL 75MG TABLET PO SCH (09:21)
[2019-09-03] MEDS: LOSARTAN POTASSIUM 50 MG TABLET PO SCH (09:22)
[2019-09-03] MEDS: CITALOPRAM HYDROBROMIDE 10MG TABLET PO SCH (09:22)
[2019-09-03] MEDS: HYDROCODONE/ACETAMINOPHEN 10/325MG TABLET PO PRN ×2 (09:23→18:27)
[2019-09-03] MEDS: CARVEDILOL 6.25 MG TABLET PO SCH ×2 (09:24→21:26)
[2019-09-03 12:00] VITALS: BP 121/74
[2019-09-03 16:00] VITALS: BP 130/87
[2019-09-03 20:00] VITALS: BP 117/67
[2019-09-03] MEDS: QUETIAPINE FUMARATE 50MG TABLET PO SCH (21:27)
[2019-09-04] VITALS: BP 103/68
[2019-09-04 04:00] VITALS: BP 110/75
[2019-09-04] MEDS: LACTULOSE 20G/30ML UDC PO SCH ×3 (05:28→21:00)
[2019-09-04 07:40] LABS: CHLORIDE 100 mEq/L (98-107)
[2019-09-04 07:50] LABS: PHOSPHORUS 2.6 mg/dL (2.5-4.9)
[2019-09-04 07:52] LABS: BASOPHILS % 0.6 % (0.0-2.0); EOSINOPHILS % 1.6 % (0.0-5.0); HEMATOCRIT. 37.6 % (42.0-52.0); HEMOGLOBIN. 11.9 g/dL (14.0-18.0); LYMPHOCYTES % 17.2 % (20.0-50.0); MEAN CORPUSCULAR HEMOGLOBIN 26.1 pg (28.0-32.0); MEAN CORPUSCULAR VOLUME 82.4 fL (80.0-94.0); MEAN PLATELET VOLUME 8.5 fl (7.4-10.4); MONOCYTES % 8.7 % (2.0-8.0); NEUTROPHILS % 71.9 % (40.0-76.0); PLATELET 300 x1000/uL (130-400); RED BLOOD CELL COUNT 4.56 mill/uL (4.7-6.1); RED CELL DISTRIBUTION WIDTH 21.5 % (11.6-14.6)
[2019-09-04 08:00] VITALS: BP 121/75
[2019-09-04] MEDS: DOCUSATE SODIUM 250MG CAPSULE PO SCH ×2 (09:00→17:00)
[2019-09-04] MEDS: CITALOPRAM HYDROBROMIDE 10MG TABLET PO SCH (09:22)
[2019-09-04] MEDS: FUROSEMIDE 40MG TABLET PO SCH (09:22)
[2019-09-04] MEDS: FOLIC ACID 1MG TABLET PO SCH (09:22)
[2019-09-04] MEDS: ASCORBIC ACID 500 MG TABLET PO SCH ×3 (09:22→18:01)
[2019-09-04] MEDS: CARVEDILOL 6.25 MG TABLET PO SCH ×2 (09:23→20:52)
[2019-09-04] MEDS: LOSARTAN POTASSIUM 50 MG TABLET PO SCH (09:23)
[2019-09-04] MEDS: HYDROCODONE/ACETAMINOPHEN 5/325MG TABLET PO PRN (09:23)
[2019-09-04] MEDS: BUPROPION HCL 75MG TABLET PO SCH (09:23)
[2019-09-04] MEDS: FERROUS SULFATE 325MG TABLET PO SCH ×3 (09:23→18:01)
[2019-09-04 12:00] VITALS: BP 128/82
[2019-09-04 16:00] VITALS: BP 120/82
[2019-09-04] MEDS: HYDROCODONE/ACETAMINOPHEN 10/325MG TABLET PO PRN (18:02)
[2019-09-04 20:00] VITALS: BP 125/84
[2019-09-04] MEDS: QUETIAPINE FUMARATE 50MG TABLET PO SCH (20:52)
[2019-09-05] VITALS: BP 101/60
[2019-09-05 04:00] VITALS: BP 102/66
[2019-09-05] MEDS: LACTULOSE 20G/30ML UDC PO SCH ×3 (06:00→21:07)
[2019-09-05 08:00] VITALS: BP 116/68
[2019-09-05] MEDS: CITALOPRAM HYDROBROMIDE 10MG TABLET PO SCH (08:53)
[2019-09-05] MEDS: DOCUSATE SODIUM 250MG CAPSULE PO SCH ×2 (08:53→17:00)
[2019-09-05] MEDS: BUPROPION HCL 75MG TABLET PO SCH (08:53)
[2019-09-05] MEDS: FERROUS SULFATE 325MG TABLET PO SCH ×3 (08:53→17:37)
[2019-09-05] MEDS: ASCORBIC ACID 500 MG TABLET PO SCH ×3 (08:54→17:36)
[2019-09-05] MEDS: CARVEDILOL 6.25 MG TABLET PO SCH ×2 (08:54→21:07)
[2019-09-05] MEDS: FOLIC ACID 1MG TABLET PO SCH (08:54)
[2019-09-05] MEDS: FUROSEMIDE 40MG TABLET PO SCH (08:56)
[2019-09-05] MEDS: LOSARTAN POTASSIUM 50 MG TABLET PO SCH (08:56)
[2019-09-05 12:00] VITALS: BP 122/79
[2019-09-05] MEDS: HYDROCODONE/ACETAMINOPHEN 10/325MG TABLET PO PRN (12:29)
[2019-09-05 16:00] VITALS: BP 113/76
[2019-09-05] MEDS: HYDROCODONE/ACETAMINOPHEN 5/325MG TABLET PO PRN (17:41)
[2019-09-05 20:00] VITALS: BP 130/69
[2019-09-05] MEDS: QUETIAPINE FUMARATE 50MG TABLET PO SCH (21:07)
[2019-09-06] VITALS: BP 112/70
[2019-09-06 04:00] VITALS: BP 126/84
[2019-09-06] MEDS: LACTULOSE 20G/30ML UDC PO SCH ×3 (06:00→21:19)
[2019-09-06 07:28] LABS: CHLORIDE 99 mEq/L (98-107)
[2019-09-06 07:40] LABS: BASOPHILS % 0.2 % (0.0-2.0); EOSINOPHILS % 1.8 % (0.0-5.0); HEMATOCRIT. 37.1 % (42.0-52.0); LYMPHOCYTES % 20.9 % (20.0-50.0); MEAN CORPUSCULAR HEMOGLOBIN 26.5 pg (28.0-32.0); MEAN CORPUSCULAR VOLUME 81.9 fL (80.0-94.0); MEAN PLATELET VOLUME 8.1 fl (7.4-10.4); MONOCYTES % 13.5 % (2.0-8.0); NEUTROPHILS % 63.6 % (40.0-76.0); PLATELET 312 x1000/uL (130-400); RED BLOOD CELL COUNT 4.53 mill/uL (4.7-6.1); RED CELL DISTRIBUTION WIDTH 21.3 % (11.6-14.6)
[2019-09-06 08:00] VITALS: BP 130/84
[2019-09-06] MEDS: DOCUSATE SODIUM 250MG CAPSULE PO SCH ×2 (09:00→17:00)
[2019-09-06] MEDS: LOSARTAN POTASSIUM 50 MG TABLET PO SCH (09:09)
[2019-09-06] MEDS: FOLIC ACID 1MG TABLET PO SCH (09:10)
[2019-09-06] MEDS: FUROSEMIDE 40MG TABLET PO SCH (09:10)
[2019-09-06] MEDS: FERROUS SULFATE 325MG TABLET PO SCH ×3 (09:10→17:53)
[2019-09-06] MEDS: CARVEDILOL 6.25 MG TABLET PO SCH ×2 (09:11→21:21)
[2019-09-06] MEDS: CITALOPRAM HYDROBROMIDE 10MG TABLET PO SCH (09:11)
[2019-09-06] MEDS: ASCORBIC ACID 500 MG TABLET PO SCH ×3 (09:11→17:53)
[2019-09-06] MEDS: BUPROPION HCL 75MG TABLET PO SCH (09:11)
[2019-09-06 12:00] VITALS: BP 124/81
[2019-09-06 16:00] VITALS: BP 127/80
[2019-09-06 20:00] VITALS: BP 157/77
[2019-09-06] MEDS: QUETIAPINE FUMARATE 50MG TABLET PO SCH (21:19)
[2019-09-06] MEDS: HYDROCODONE/ACETAMINOPHEN 5/325MG TABLET PO PRN (21:27)
[2019-09-07] VITALS (7 sets, daily range): BP systolic 112–143; BP diastolic 68–98
[2019-09-07] MEDS: LACTULOSE 20G/30ML UDC PO SCH ×3 (06:03→20:30)
[2019-09-07] MEDS: CARVEDILOL 6.25 MG TABLET PO SCH ×2 (08:30→20:30)
[2019-09-07] MEDS: LOSARTAN POTASSIUM 50 MG TABLET PO SCH (08:30)
[2019-09-07] MEDS: FUROSEMIDE 40MG TABLET PO SCH (08:31)
[2019-09-07] MEDS: ASCORBIC ACID 500 MG TABLET PO SCH ×3 (08:31→18:04)
[2019-09-07] MEDS: BUPROPION HCL 75MG TABLET PO SCH (08:31)
[2019-09-07] MEDS: CITALOPRAM HYDROBROMIDE 10MG TABLET PO SCH (08:31)
[2019-09-07] MEDS: FERROUS SULFATE 325MG TABLET PO SCH ×3 (08:31→18:04)
[2019-09-07] MEDS: DOCUSATE SODIUM 250MG CAPSULE PO SCH ×2 (08:31→17:00)
[2019-09-07] MEDS: FOLIC ACID 1MG TABLET PO SCH (08:31)
[2019-09-07] MEDS: MAGNESIUM OXIDE 400MG TABLET PO SCH (18:04)
[2019-09-07] MEDS: QUETIAPINE FUMARATE 50MG TABLET PO SCH (20:30)
[2019-09-08] VITALS: BP 106/71
[2019-09-08 04:00] VITALS: BP 129/90
[2019-09-08] MEDS: LACTULOSE 20G/30ML UDC PO SCH ×3 (06:00→21:02)
[2019-09-08 08:00] VITALS: BP 138/85
[2019-09-08] MEDS: DOCUSATE SODIUM 250MG CAPSULE PO SCH ×3 (09:00→16:58)
[2019-09-08] MEDS: CITALOPRAM HYDROBROMIDE 10MG TABLET PO SCH (09:03)
[2019-09-08] MEDS: BUPROPION HCL 75MG TABLET PO SCH (09:03)
[2019-09-08] MEDS: FERROUS SULFATE 325MG TABLET PO SCH ×3 (09:03→16:58)
[2019-09-08] MEDS: FUROSEMIDE 40MG TABLET PO SCH (09:03)
[2019-09-08] MEDS: MAGNESIUM OXIDE 400MG TABLET PO SCH ×2 (09:04→16:58)
[2019-09-08] MEDS: LOSARTAN POTASSIUM 50 MG TABLET PO SCH (09:04)
[2019-09-08] MEDS: FOLIC ACID 1MG TABLET PO SCH (09:04)
[2019-09-08] MEDS: ASCORBIC ACID 500 MG TABLET PO SCH ×3 (09:04→16:58)
[2019-09-08] MEDS: CARVEDILOL 6.25 MG TABLET PO SCH ×2 (09:05→21:02)
[2019-09-08 12:00] VITALS: BP_SYST 126; BP_SYST 137; BP_DIAS 81; BP_DIAS 92
[2019-09-08 16:00] VITALS: BP 115/79
[2019-09-08 20:00] VITALS: BP 119/79
[2019-09-08] MEDS: QUETIAPINE FUMARATE 50MG TABLET PO SCH (21:01)
[2019-09-09] VITALS: BP 118/81
[2019-09-09] MEDS: HYDROCODONE/ACETAMINOPHEN 5/325MG TABLET PO PRN (00:19)
[2019-09-09 04:00] VITALS: BP 112/74
[2019-09-09] MEDS: LACTULOSE 20G/30ML UDC PO SCH (06:00)
[2019-09-09 06:49] LABS: BASOPHILS % 0.6 % (0.0-2.0); EOSINOPHILS % 2.6 % (0.0-5.0); HEMATOCRIT. 36.4 % (42.0-52.0); HEMOGLOBIN. 11.8 g/dL (14.0-18.0); LYMPHOCYTES % 29.5 % (20.0-50.0); MEAN CORPUSCULAR HEMOGLOBIN 26.9 pg (28.0-32.0); MEAN CORPUSCULAR VOLUME 82.5 fL (80.0-94.0); MEAN PLATELET VOLUME 7.8 fl (7.4-10.4); MONOCYTES % 14.9 % (2.0-8.0); NEUTROPHILS % 52.4 % (40.0-76.0); PLATELET 244 x1000/uL (130-400); RED BLOOD CELL COUNT 4.41 mill/uL (4.7-6.1); RED CELL DISTRIBUTION WIDTH 21.1 % (11.6-14.6)
[2019-09-09 07:04] LABS: CHLORIDE 100 mEq/L (98-107)
[2019-09-09 07:14] LABS: PHOSPHORUS 3.1 mg/dL (2.5-4.9)
[2019-09-09 08:00] VITALS: BP 131/83
[2019-09-09] MEDS: MAGNESIUM OXIDE 400MG TABLET PO SCH (09:00)
[2019-09-09] MEDS: BUPROPION HCL 75MG TABLET PO SCH (10:11)
[2019-09-09] MEDS: ASCORBIC ACID 500 MG TABLET PO SCH ×3 (10:11→17:00)
[2019-09-09] MEDS: DOCUSATE SODIUM 250MG CAPSULE PO SCH ×2 (10:12→17:00)
[2019-09-09] MEDS: FERROUS SULFATE 325MG TABLET PO SCH ×2 (10:12→12:50)
[2019-09-09] MEDS: LOSARTAN POTASSIUM 50 MG TABLET PO SCH (10:12)
[2019-09-09] MEDS: FUROSEMIDE 40MG TABLET PO SCH (10:12)
[2019-09-09] MEDS: FOLIC ACID 1MG TABLET PO SCH (10:12)
[2019-09-09] MEDS: CARVEDILOL 6.25 MG TABLET PO SCH ×2 (10:13→22:01)
[2019-09-09] MEDS: CITALOPRAM HYDROBROMIDE 10MG TABLET PO SCH (10:13)
[2019-09-09 12:00] VITALS: BP 124/86
[2019-09-09 16:00] VITALS: BP 123/87
[2019-09-09 20:00] VITALS: BP 126/81
[2019-09-09] MEDS: QUETIAPINE FUMARATE 50MG TABLET PO SCH (22:01)
[2019-09-10] VITALS: BP 107/71
[2019-09-10 04:00] VITALS: BP 106/63
[2019-09-10 08:00] VITALS: BP 132/93
[2019-09-10] MEDS: FUROSEMIDE 40MG TABLET PO SCH (08:54)
[2019-09-10] MEDS: LOSARTAN POTASSIUM 50 MG TABLET PO SCH (08:54)
[2019-09-10] MEDS: CITALOPRAM HYDROBROMIDE 10MG TABLET PO SCH (08:54)
[2019-09-10] MEDS: ASCORBIC ACID 500 MG TABLET PO SCH (09:00)
[2019-09-10] MEDS: DOCUSATE SODIUM 250MG CAPSULE PO SCH (09:00)
[2019-09-10] MEDS: CARVEDILOL 6.25 MG TABLET PO SCH (09:02)
[2019-09-10] MEDS: FOLIC ACID 1MG TABLET PO SCH (09:02)
[2019-09-10] MEDS: BUPROPION HCL 75MG TABLET PO SCH (09:03)
[2019-09-10 12:56] VITALS: BP 124/86
[2019-09-10] MEDS: HYDROCODONE/ACETAMINOPHEN 5/325MG TABLET PO PRN (12:56)
== END 2019-09-10 14:46 | DRG 710 ==
LOC: ER 08:09 → EDBEDREQ 08:53 → 7WST 09:43 → EDBEDREQ 09:50 → EDBEDREQTM 09:50 → ENRESERV 12:49 → 8WST 08-19 05:28 → MICUNO 08-30 10:29 → 6EST 09-01 15:20
PROVIDERS: ADMIT Internal Medicine; ATTEND Internal Medicine
PROC: 01N80ZZ Release Thoracic Nerve, Open Approach (ICD-10-PCS; principal; 2019-08-30)
PROC: 0RG6071 Fusion of Thoracic Vertebral Joint with Autologous Tissue Substitute, Posterior Approach, Posterior Column, Open Approach (ICD-10-PCS; 2019-08-30)
DX: A41.9 Sepsis, unspecified organism (principal); J18.9 Pneumonia, unspecified organism; I63.9 Cerebral infarction, unspecified; R74.0 Nonspecific elevation of levels of transaminase and lactic acid dehydrogenase [LDH]; I11.0 Hypertensive heart disease with heart failure; E43 Unspecified severe protein-calorie malnutrition; Z68.1 Body mass index [BMI] 19.9 or less, adult; I16.0 Hypertensive urgency; I50.23 Acute on chronic systolic (congestive) heart failure; D50.9 Iron deficiency anemia, unspecified; D69.6 Thrombocytopenia, unspecified; F17.210 Nicotine dependence, cigarettes, uncomplicated; F31.9 Bipolar disorder, unspecified; G82.50 Quadriplegia, unspecified; G93.40 Encephalopathy, unspecified; I08.1 Rheumatic disorders of both mitral and tricuspid valves; I25.10 Atherosclerotic heart disease of native coronary artery without angina pectoris; J44.0 Chronic obstructive pulmonary disease with (acute) lower respiratory infection; M47.814 Spondylosis without myelopathy or radiculopathy, thoracic region; M47.816 Spondylosis without myelopathy or radiculopathy, lumbar region; M47.817 Spondylosis without myelopathy or radiculopathy, lumbosacral region; I21.4 Non-ST elevation (NSTEMI) myocardial infarction; M48.02 Spinal stenosis, cervical region; M48.04 Spinal stenosis, thoracic region; F15.10 Other stimulant abuse, uncomplicated; G95.20 Unspecified cord compression; M71.38 Other bursal cyst, other site; M48.061 Spinal stenosis, lumbar region without neurogenic claudication; J68.0 Bronchitis and pneumonitis due to chemicals, gases, fumes and vapors; Z20.828 Contact with and (suspected) exposure to other viral communicable diseases; M50.20 Other cervical disc displacement, unspecified cervical region; M51.26 Other intervertebral disc displacement, lumbar region; Z86.73 Personal history of transient ischemic attack (TIA), and cerebral infarction without residual deficits; Z91.14 Patient's other noncompliance with medication regimen; Z98.1 Arthrodesis status; Z71.51 Drug abuse counseling and surveillance of drug abuser; Z99.3 Dependence on wheelchair; Z74.01 Bed confinement status; Z79.82 Long term (current) use of aspirin
CPT/HCPCS: 36415; 36600; 70496; 70498; 70551; 71045; 71275; 72070; 72141; 72146; 72148; 74230; 76000; 76700; 80048; 80053; 80061; 80076; 80165; 80305; 80320; 81003; 82140; 82375; 82550; 82607; 82728; 82746; 82805; 82962; 82977; 83036; 83540; 83550; 83605; 83615; 83721; 83735; 83880; 84100; 84145; 84439; 84443; 84481; 84484; 85025; 85379; 85384; 85651; 86140; 86705; 86709; 86803; 86850; 86900; 86920; 87340; 87635; 87804; 92523; 92610; 92611; 93005; 93306; 93970; 94640; 97110; 97162; 97164; 97166; 97168; 97530; 97535; 99291; C1713; J0456; J0690; J0696; J1100; J1170; J1265; J1650; J1940; J2270; J2704; J2710; J3475; J3490; J7042; J7050; J7060; J7121; Q9967; G0480; U0003-CS

== ENCOUNTER 2019-09-16 09:46 | Inpatient (IN) | payer MEDICAID ==
[~2019-09-16] VITALS: Ht 175.3 cm; Wt 69.9 kg
[2019-09-16] MEDS ORDERED: MORPHINE SULFATE 4 MG/ML CPJ (NOT FOR IM USE) IV STA (10:31)
[2019-09-16] MEDS ORDERED: AMLODIPINE 2.5MG TABLET PO ONE (11:15)
[2019-09-16 11:36] LABS: BASOPHILS % 1.2 % (0.0-2.0); HEMOGLOBIN. 11.7 g/dL (14.0-18.0); LYMPHOCYTES % 33.5 % (20.0-50.0); MEAN CORPUSCULAR HEMOGLOBIN 26.8 pg (28.0-32.0); MEAN CORPUSCULAR VOLUME 82.6 fL (80.0-94.0); MEAN PLATELET VOLUME 7.9 fl (7.4-10.4); NEUTROPHILS % 53.3 % (40.0-76.0); PLATELET 171 x1000/uL (130-400); RED BLOOD CELL COUNT 4.36 mill/uL (4.7-6.1); RED CELL DISTRIBUTION WIDTH 20.5 % (11.6-14.6)
[2019-09-16 11:37] LABS: CHLORIDE 103 mEq/L (98-107)
[2019-09-16] MEDS ORDERED: MORPHINE SULFATE 4 MG/ML CPJ (NOT FOR IM USE) IV ONE (15:15)
[2019-09-16] MEDS ORDERED: SODIUM CHLORIDE 0.9% 250 ML IV ONE (15:15)
[2019-09-16] MEDS ORDERED: HYDROCODONE/ACETAMINOPHEN 10/325MG TABLET PO PRN (15:45)
[2019-09-16] MEDS ORDERED: CLONIDINE 0.1MG TABLET PO PRN (15:45)
[2019-09-16] MEDS ORDERED: HYDRALAZINE 20MG/ML VIAL IV NR (15:45)
[2019-09-16] MEDS ORDERED: FUROSEMIDE 40MG TABLET PO NR (15:45)
[2019-09-16] MEDS ORDERED: ACETAMINOPHEN 325MG TABLET PO PRN (15:45)
[2019-09-16] MEDS ORDERED: ONDANSETRON HCL 4MG/2ML INJ IV PRN (15:45)
[2019-09-16 17:00] VITALS: BP 160/101
[2019-09-16] MEDS: LOSARTAN POTASSIUM 100 MG TABLET PO SCH (18:07)
[2019-09-16 20:00] VITALS: BP 134/89
[2019-09-16] MEDS ORDERED: HYDRALAZINE HCL 50MG TABLET PO NR (20:15)
[2019-09-16] MEDS: HYDRALAZINE HCL 50MG TABLET PO SCH (21:37)
[2019-09-16] MEDS: CARVEDILOL 12.5MG TABLET PO SCH (21:38)
[2019-09-16 22:45] LABS: *AMPHETAMINES SCREEN URINE NEGATIVE (NEGATIVE); *BARBITURATES SCREEN URINE NEGATIVE (NEGATIVE); *BENZODIAZEPINES SCREEN URINE NEGATIVE (NEGATIVE); CANNABINOID URINE SCREEN NEGATIVE (NEGATIVE)
[2019-09-16 22:46] LABS: *COCAINE SCREEN URINE NEGATIVE (NEGATIVE); METHADONE URINE SCREEN NEGATIVE (NEGATIVE); OPIATES URINE SCREEN PRESUMTIVE POSITIVE (NEGATIVE); PHENCYCLIDINE URINE SCREEN NEGATIVE (NEGATIVE)
[2019-09-16] MEDS: QUETIAPINE FUMARATE 50MG TABLET PO SCH (23:56)
[2019-09-17] VITALS: BP 99/55
[2019-09-17 04:00] VITALS: BP 83/49
[2019-09-17 08:09] VITALS: BP 99/54
[2019-09-17] MEDS: CITALOPRAM HYDROBROMIDE 10MG TABLET PO SCH (08:39)
[2019-09-17] MEDS: FUROSEMIDE 40MG TABLET PO SCH (08:39)
[2019-09-17] MEDS: DIVALPROEX SODIUM 250MG ER TABLET PO SCH ×3 (08:39→16:22)
[2019-09-17] MEDS: BUPROPION HCL 75MG TABLET PO SCH (08:39)
[2019-09-17] MEDS: HYDRALAZINE HCL 50MG TABLET PO SCH (08:40)
[2019-09-17] MEDS: CARVEDILOL 12.5MG TABLET PO SCH ×2 (08:40→20:37)
[2019-09-17] MEDS: LOSARTAN POTASSIUM 100 MG TABLET PO SCH (08:40)
[2019-09-17] MEDS: AMLODIPINE 2.5MG TABLET PO SCH ×2 (08:41→20:38)
[2019-09-17 12:00] VITALS: BP 107/72
[2019-09-17 16:00] VITALS: BP 100/48
[2019-09-17 20:00] VITALS: BP 113/73
[2019-09-17] MEDS: QUETIAPINE FUMARATE 50MG TABLET PO SCH (20:38)
[2019-09-18] VITALS: BP 143/95
[2019-09-18 04:00] VITALS: BP 120/73
[2019-09-18 07:15] LABS: CHLORIDE 104 mEq/L (98-107)
[2019-09-18 07:18] LABS: BASOPHILS % 0.4 % (0.0-2.0); EOSINOPHILS % 6.9 % (0.0-5.0); HEMATOCRIT. 34.5 % (42.0-52.0); HEMOGLOBIN. 11.6 g/dL (14.0-18.0); LYMPHOCYTES % 50.1 % (20.0-50.0); MEAN CORPUSCULAR VOLUME 80.7 fL (80.0-94.0); MONOCYTES % 6.1 % (2.0-8.0); NEUTROPHILS % 36.5 % (40.0-76.0); PLATELET 169 x1000/uL (130-400); RED BLOOD CELL COUNT 4.27 mill/uL (4.7-6.1); RED CELL DISTRIBUTION WIDTH 20.2 % (11.6-14.6)
[2019-09-18 08:00] VITALS: BP 144/93
[2019-09-18] MEDS: FUROSEMIDE 40MG TABLET PO SCH (08:42)
[2019-09-18] MEDS: CARVEDILOL 12.5MG TABLET PO SCH ×2 (08:42→21:04)
[2019-09-18] MEDS: AMLODIPINE 2.5MG TABLET PO SCH ×2 (08:42→21:04)
[2019-09-18] MEDS: BUPROPION HCL 75MG TABLET PO SCH (08:42)
[2019-09-18] MEDS: CITALOPRAM HYDROBROMIDE 10MG TABLET PO SCH (08:43)
[2019-09-18] MEDS: DIVALPROEX SODIUM 250MG ER TABLET PO SCH ×3 (08:43→17:06)
[2019-09-18] MEDS: LOSARTAN POTASSIUM 100 MG TABLET PO SCH (08:43)
[2019-09-18 12:00] VITALS: BP 95/44
[2019-09-18 16:00] VITALS: BP 126/77
[2019-09-18 20:00] VITALS: BP 125/81
[2019-09-18] MEDS: QUETIAPINE FUMARATE 50MG TABLET PO SCH (21:04)
[2019-09-19] VITALS: BP 108/70
[2019-09-19 04:00] VITALS: BP 117/81
[2019-09-19 07:22] LABS: CHLORIDE 104 mEq/L (98-107)
[2019-09-19 07:25] LABS: BASOPHILS % 0.5 % (0.0-2.0); EOSINOPHILS % 6.9 % (0.0-5.0); HEMATOCRIT. 35.4 % (42.0-52.0); HEMOGLOBIN. 11.6 g/dL (14.0-18.0); LYMPHOCYTES % 46.6 % (20.0-50.0); MEAN CORPUSCULAR HEMOGLOBIN 26.8 pg (28.0-32.0); MEAN CORPUSCULAR VOLUME 81.6 fL (80.0-94.0); MEAN PLATELET VOLUME 8.3 fl (7.4-10.4); MONOCYTES % 7.7 % (2.0-8.0); NEUTROPHILS % 38.3 % (40.0-76.0); PLATELET 187 x1000/uL (130-400); RED BLOOD CELL COUNT 4.33 mill/uL (4.7-6.1); RED CELL DISTRIBUTION WIDTH 20.3 % (11.6-14.6)
[2019-09-19 08:00] VITALS: BP 123/75
[2019-09-19] MEDS: AMLODIPINE 2.5MG TABLET PO SCH ×2 (08:47→21:41)
[2019-09-19] MEDS: CITALOPRAM HYDROBROMIDE 10MG TABLET PO SCH (08:48)
[2019-09-19] MEDS: FUROSEMIDE 40MG TABLET PO SCH (08:48)
[2019-09-19] MEDS: LOSARTAN POTASSIUM 100 MG TABLET PO SCH (08:48)
[2019-09-19] MEDS: BUPROPION HCL 75MG TABLET PO SCH (08:48)
[2019-09-19] MEDS: DIVALPROEX SODIUM 250MG ER TABLET PO SCH ×3 (08:49→17:30)
[2019-09-19] MEDS: CARVEDILOL 12.5MG TABLET PO SCH ×2 (08:49→21:42)
[2019-09-19 12:00] VITALS: BP 118/74
[2019-09-19 16:00] VITALS: BP 126/77
[2019-09-19] MEDS: QUETIAPINE FUMARATE 50MG TABLET PO SCH (21:41)
[2019-09-20] VITALS: BP 101/71
[2019-09-20 04:00] VITALS: BP 129/82
[2019-09-20 08:00] VITALS: BP 123/74
[2019-09-20] MEDS: LOSARTAN POTASSIUM 100 MG TABLET PO SCH (08:14)
[2019-09-20] MEDS: BUPROPION HCL 75MG TABLET PO SCH (08:14)
[2019-09-20] MEDS: CITALOPRAM HYDROBROMIDE 10MG TABLET PO SCH (08:14)
[2019-09-20] MEDS: FUROSEMIDE 40MG TABLET PO SCH (08:15)
[2019-09-20] MEDS: CARVEDILOL 12.5MG TABLET PO SCH ×2 (08:15→21:48)
[2019-09-20] MEDS: DIVALPROEX SODIUM 250MG ER TABLET PO SCH ×3 (08:15→17:28)
[2019-09-20] MEDS: AMLODIPINE 2.5MG TABLET PO SCH ×2 (08:15→21:38)
[2019-09-20 12:00] VITALS: BP 108/68
[2019-09-20 16:00] VITALS: BP 97/60
[2019-09-20 20:00] VITALS: BP 111/71
[2019-09-20] MEDS: QUETIAPINE FUMARATE 50MG TABLET PO SCH (21:49)
[2019-09-21] VITALS: BP 108/71
[2019-09-21 04:00] VITALS: BP 111/71
[2019-09-21 08:00] VITALS: BP 128/85
[2019-09-21] MEDS: LOSARTAN POTASSIUM 100 MG TABLET PO SCH (08:30)
[2019-09-21] MEDS: CARVEDILOL 12.5MG TABLET PO SCH ×2 (08:31→21:15)
[2019-09-21] MEDS: BUPROPION HCL 75MG TABLET PO SCH (08:31)
[2019-09-21] MEDS: DIVALPROEX SODIUM 250MG ER TABLET PO SCH ×3 (08:31→17:11)
[2019-09-21] MEDS: AMLODIPINE 2.5MG TABLET PO SCH ×2 (08:31→21:15)
[2019-09-21] MEDS: FUROSEMIDE 40MG TABLET PO SCH (08:31)
[2019-09-21] MEDS: CITALOPRAM HYDROBROMIDE 10MG TABLET PO SCH (08:31)
[2019-09-21 12:00] VITALS: BP 104/69
[2019-09-21 16:00] VITALS: BP 104/69
[2019-09-21 16:36] LABS: INR 1.2; PROTHROMBIN TIME 12.4 sec (9.6-11.0)
[2019-09-21 20:00] VITALS: BP 129/72
[2019-09-21] MEDS: QUETIAPINE FUMARATE 50MG TABLET PO SCH (21:16)
[2019-09-22] VITALS (41 sets, daily range): BP systolic 80–168; BP diastolic 46–117
[2019-09-22] MEDS ORDERED: THROMBIN (BOVINE) 5000 UNITS/VIAL TOP ONE ×2 (07:17→07:18)
[2019-09-22] MEDS ORDERED: BACITRACIN 50,000 UNITS/VIAL ONE (07:18)
[2019-09-22] MEDS ORDERED: NORMAL SALINE 0.9% 10 ML SYR ONE (07:18)
[2019-09-22] MEDS: BUPROPION HCL 75MG TABLET PO SCH (09:00)
[2019-09-22] MEDS: CITALOPRAM HYDROBROMIDE 10MG TABLET PO SCH (09:00)
[2019-09-22] MEDS: AMLODIPINE 2.5MG TABLET PO SCH ×2 (09:00→21:00)
[2019-09-22] MEDS: LOSARTAN POTASSIUM 100 MG TABLET PO SCH (09:00)
[2019-09-22] MEDS: DIVALPROEX SODIUM 250MG ER TABLET PO SCH ×3 (09:00→17:00)
[2019-09-22] MEDS: CARVEDILOL 12.5MG TABLET PO SCH ×2 (09:00→21:00)
[2019-09-22] MEDS: FUROSEMIDE 40MG TABLET PO SCH (09:00)
[2019-09-22] MEDS ORDERED: HYDRALAZINE 20MG/ML VIAL IV PRN (11:00)
[2019-09-22] MEDS: DEXT 5%/LACTATED RINGERS 1,000 ML IV SCH ×3 (11:00→21:49)
[2019-09-22] MEDS ORDERED: FENTANYL CITRATE/PF 50MCG/ML 2ML VIAL ONE (11:05)
[2019-09-22] MEDS ORDERED: NEOSTIGMINE METHYLSULFATE 1MG/ML 10 ML VIAL ONE (11:05)
[2019-09-22] MEDS ORDERED: PROPOFOL 200MG/20ML VIAL IV ONE (11:05)
[2019-09-22] MEDS ORDERED: MIDAZOLAM HCL 2 MG/2 ML VIAL ONE (11:06)
[2019-09-22] MEDS ORDERED: GLYCOPYRROLATE 0.2 MG/ML 2ML VIAL ONE (11:06)
[2019-09-22] MEDS ORDERED: HYDRALAZINE 5 MG in SODIUM CHLORIDE 0.9% 49.5 ML IV PRN ×4 (11:30)
[2019-09-22] MEDS ORDERED: SODIUM CHLORIDE 0.9% 10ML VIAL ONE (11:59)
[2019-09-22] MEDS ORDERED: CEFAZOLIN SODIUM 1000MG/VIAL ONE (11:59)
[2019-09-22] MEDS ORDERED: ONDANSETRON HCL 4MG/2ML INJ ONE (11:59)
[2019-09-22] MEDS ORDERED: DEXAMETHASONE 4MG/ML 1ML VIAL ONE (11:59)
[2019-09-22] MEDS ORDERED: LIDOCAINE HCL/PF 1% 10 MG/ML 5ML VIAL ONE (12:00)
[2019-09-22] MEDS ORDERED: LABETALOL HCL 5MG/ML VIAL 20ML IV ONE (12:00)
[2019-09-22] MEDS ORDERED: PHENYLEPHRINE HCL 10 MG/ML 1ML (IV VIAL) IV ONE ×2 (12:00→12:04)
[2019-09-22] MEDS ORDERED: EPHEDRINE SULFATE 50MG/ML VIAL ONE (12:00)
[2019-09-22] MEDS ORDERED: LIDOCAINE HCL/EPINEPHRINE 1%-EPI 1:100,000 20 ML VIAL INFIL SCH (13:00)
[2019-09-22] MEDS ORDERED: NICARDIPINE 100 MG in SODIUM CHLORIDE 0.9% 60 ML IV PRN (13:00)
[2019-09-22] MEDS: MORPHINE SULFATE 4 MG/ML CPJ (NOT FOR IM USE) IV PRN (13:09)
[2019-09-22] MEDS ORDERED: CEFAZOLIN 1000MG PREMIX 50 ML IV SCH (14:00)
[2019-09-22] MEDS ORDERED: CEFAZOLIN SODIUM 1000MG/VIAL IV SCH (14:00)
[2019-09-22] MEDS ORDERED: HYDROMORPHONE PCA 10MG/50ML IV PRN (15:45)
[2019-09-22] MEDS ORDERED: ONDANSETRON INJ IV PRN (15:45)
[2019-09-22] MEDS ORDERED: DIPHENHYDRAMINE INJ IV PRN (15:45)
[2019-09-22] MEDS ORDERED: NALOXONE INJ IV PRN (15:45)
[2019-09-22] MEDS ORDERED: IPRATROPIUM/ALBUTEROL 0.5-3(2.5)MG/3ML NEB HHN PRN (18:45)
[2019-09-22] MEDS: CEFAZOLIN 1000MG PREMIX 50 ML IV SCH (20:21)
[2019-09-22] MEDS: QUETIAPINE FUMARATE 50MG TABLET PO SCH (21:10)
[2019-09-23] VITALS (59 sets, daily range): BP systolic 78–141; BP diastolic 49–84
[2019-09-23] MEDS: CEFAZOLIN 1000MG PREMIX 50 ML IV SCH ×3 (03:46→20:34)
[2019-09-23] MEDS: DEXT 5%/LACTATED RINGERS 1,000 ML IV SCH (06:21)
[2019-09-23] MEDS: CITALOPRAM HYDROBROMIDE 10MG TABLET PO SCH (09:13)
[2019-09-23] MEDS: DIVALPROEX SODIUM 250MG ER TABLET PO SCH ×3 (09:13→18:09)
[2019-09-23] MEDS: BUPROPION HCL 75MG TABLET PO SCH (09:14)
[2019-09-23] MEDS: AMLODIPINE 2.5MG TABLET PO SCH ×2 (09:14→20:35)
[2019-09-23] MEDS: CARVEDILOL 12.5MG TABLET PO SCH ×2 (09:14→20:35)
[2019-09-23] MEDS: LOSARTAN POTASSIUM 100 MG TABLET PO SCH (09:14)
[2019-09-23] MEDS: FUROSEMIDE 40MG TABLET PO SCH (09:14)
[2019-09-23] MEDS ORDERED: HYDROCODONE/ACETAMINOPHEN 10/325MG TABLET PO PRN (17:15)
[2019-09-23] MEDS: MORPHINE SULFATE 4 MG/ML CPJ (NOT FOR IM USE) IV PRN (20:34)
[2019-09-23] MEDS: QUETIAPINE FUMARATE 50MG TABLET PO SCH (20:34)
[2019-09-24] VITALS (8 sets, daily range): BP systolic 87–127; BP diastolic 44–84
[2019-09-24] MEDS: MORPHINE SULFATE 4 MG/ML CPJ (NOT FOR IM USE) IV PRN ×3 (00:28→16:31)
[2019-09-24] MEDS: CEFAZOLIN 1000MG PREMIX 50 ML IV SCH ×2 (04:54→12:00)
[2019-09-24] MEDS: FUROSEMIDE 40MG TABLET PO SCH (08:58)
[2019-09-24] MEDS: CITALOPRAM HYDROBROMIDE 10MG TABLET PO SCH (08:58)
[2019-09-24] MEDS: DIVALPROEX SODIUM 250MG ER TABLET PO SCH ×3 (08:58→16:21)
[2019-09-24] MEDS: BUPROPION HCL 75MG TABLET PO SCH (08:58)
[2019-09-24] MEDS: DOCUSATE SODIUM 250MG CAPSULE PO SCH (08:59)
[2019-09-24] MEDS: CARVEDILOL 3.125 MG TABLET PO SCH ×2 (08:59→22:22)
[2019-09-24] MEDS: AMLODIPINE 2.5MG TABLET PO SCH ×2 (08:59→22:23)
[2019-09-24] MEDS: LISINOPRIL 10MG TABLET PO SCH (08:59)
[2019-09-24] MEDS: LOSARTAN POTASSIUM 100 MG TABLET PO SCH (08:59)
[2019-09-24] MEDS ORDERED: CEFAZOLIN 1000MG PREMIX 50 ML IV SCH (12:45)
[2019-09-24 16:58] LABS: BASOPHILS % 0.6 % (0.0-2.0); EOSINOPHILS % 6.3 % (0.0-5.0); HEMATOCRIT. 31.8 % (42.0-52.0); HEMOGLOBIN. 10.3 g/dL (14.0-18.0); LYMPHOCYTES % 38.8 % (20.0-50.0); MEAN CORPUSCULAR HEMOGLOBIN 26.5 pg (28.0-32.0); MEAN CORPUSCULAR VOLUME 81.5 fL (80.0-94.0); MEAN PLATELET VOLUME 8.2 fl (7.4-10.4); NEUTROPHILS % 41.3 % (40.0-76.0); PLATELET 203 x1000/uL (130-400); RED CELL DISTRIBUTION WIDTH 19.7 % (11.6-14.6)
[2019-09-24 17:02] LABS: CHLORIDE 99 mEq/L (98-107)
[2019-09-24] MEDS ORDERED: HYDRALAZINE 20MG/ML VIAL IV PRN (20:00)
[2019-09-24] MEDS: QUETIAPINE FUMARATE 50MG TABLET PO SCH (22:24)
[2019-09-25] VITALS (7 sets, daily range): BP systolic 104–148; BP diastolic 65–94
[2019-09-25] MEDS: BUPROPION HCL 75MG TABLET PO SCH (08:26)
[2019-09-25] MEDS: LOSARTAN POTASSIUM 100 MG TABLET PO SCH (08:26)
[2019-09-25] MEDS: CITALOPRAM HYDROBROMIDE 10MG TABLET PO SCH (08:26)
[2019-09-25] MEDS: AMLODIPINE 2.5MG TABLET PO SCH (08:26)
[2019-09-25] MEDS: LISINOPRIL 10MG TABLET PO SCH (08:26)
[2019-09-25] MEDS: CARVEDILOL 3.125 MG TABLET PO SCH ×2 (08:26→21:53)
[2019-09-25] MEDS: DIVALPROEX SODIUM 250MG ER TABLET PO SCH ×3 (08:26→16:23)
[2019-09-25] MEDS: FUROSEMIDE 40MG TABLET PO SCH (08:26)
[2019-09-25] MEDS: DOCUSATE SODIUM 250MG CAPSULE PO SCH (08:26)
[2019-09-25] MEDS: MORPHINE SULFATE 4 MG/ML CPJ (NOT FOR IM USE) IV PRN ×2 (16:24→21:54)
[2019-09-25] MEDS: QUETIAPINE FUMARATE 50MG TABLET PO SCH (21:53)
[2019-09-26] VITALS: BP 94/61
[2019-09-26 04:00] VITALS: BP 126/75
[2019-09-26 08:00] VITALS: BP 122/77
[2019-09-26] MEDS: BUPROPION HCL 75MG TABLET PO SCH (08:39)
[2019-09-26] MEDS: CITALOPRAM HYDROBROMIDE 10MG TABLET PO SCH (08:40)
[2019-09-26] MEDS: DOCUSATE SODIUM 250MG CAPSULE PO SCH (08:40)
[2019-09-26] MEDS: FUROSEMIDE 40MG TABLET PO SCH (08:40)
[2019-09-26] MEDS: DIVALPROEX SODIUM 250MG ER TABLET PO SCH ×3 (08:40→17:28)
[2019-09-26] MEDS: LOSARTAN POTASSIUM 50 MG TABLET PO SCH (08:40)
[2019-09-26] MEDS: CARVEDILOL 3.125 MG TABLET PO SCH ×2 (08:40→21:34)
[2019-09-26 12:00] VITALS: BP_SYST 107; BP_SYST 167; BP_DIAS 100; BP_DIAS 62
[2019-09-26 16:00] VITALS: BP 130/84
[2019-09-26 20:00] VITALS: BP 155/93
[2019-09-26] MEDS: QUETIAPINE FUMARATE 50MG TABLET PO SCH (21:34)
[2019-09-27] VITALS: BP 133/89
[2019-09-27 04:00] VITALS: BP 115/77
[2019-09-27 08:00] VITALS: BP 136/89
[2019-09-27] MEDS: CARVEDILOL 3.125 MG TABLET PO SCH ×2 (10:01→21:12)
[2019-09-27] MEDS: FUROSEMIDE 40MG TABLET PO SCH (10:01)
[2019-09-27] MEDS: BUPROPION HCL 75MG TABLET PO SCH (10:01)
[2019-09-27] MEDS: CITALOPRAM HYDROBROMIDE 10MG TABLET PO SCH (10:01)
[2019-09-27] MEDS: DIVALPROEX SODIUM 250MG ER TABLET PO SCH ×3 (10:02→17:19)
[2019-09-27] MEDS: LOSARTAN POTASSIUM 50 MG TABLET PO SCH (10:02)
[2019-09-27] MEDS: DOCUSATE SODIUM 250MG CAPSULE PO SCH (10:02)
[2019-09-27 12:00] VITALS: BP 120/85
[2019-09-27 16:00] VITALS: BP 113/82
[2019-09-27 19:40] VITALS: BP 133/84
[2019-09-27] MEDS: QUETIAPINE FUMARATE 50MG TABLET PO SCH (21:12)
[2019-09-28] VITALS: BP 117/85
[2019-09-28] MEDS ORDERED: HYDRALAZINE IV PRN (01:00)
[2019-09-28] MEDS ORDERED: WATER IV PRN (01:00)
[2019-09-28] MEDS ORDERED: DEXTROSE 5% IV PRN (01:00)
[2019-09-28 04:00] VITALS: BP 91/59
[2019-09-28] MEDS: DOCUSATE SODIUM 250MG CAPSULE PO SCH (09:55)
[2019-09-28] MEDS: CITALOPRAM HYDROBROMIDE 10MG TABLET PO SCH (09:55)
[2019-09-28] MEDS: BUPROPION HCL 75MG TABLET PO SCH (09:55)
[2019-09-28] MEDS: LOSARTAN POTASSIUM 50 MG TABLET PO SCH (09:56)
[2019-09-28] MEDS: FUROSEMIDE 40MG TABLET PO SCH (09:56)
[2019-09-28] MEDS: DIVALPROEX SODIUM 250MG ER TABLET PO SCH ×3 (09:56→18:00)
[2019-09-28] MEDS: CARVEDILOL 3.125 MG TABLET PO SCH ×2 (09:56→21:08)
[2019-09-28 12:00] VITALS: BP_SYST 125; BP_DIAS 67; BP_DIAS 81
[2019-09-28 16:00] VITALS: BP_SYST 101; BP_SYST 113; BP_DIAS 57; BP_DIAS 75
[2019-09-28 20:00] VITALS: BP 129/77
[2019-09-28] MEDS: QUETIAPINE FUMARATE 50MG TABLET PO SCH (21:08)
[2019-09-29] VITALS: BP 90/58
[2019-09-29 04:00] VITALS: BP 138/86
[2019-09-29 08:00] VITALS: BP 155/94
[2019-09-29] MEDS: DOCUSATE SODIUM 250MG CAPSULE PO SCH (08:30)
[2019-09-29] MEDS: DIVALPROEX SODIUM 250MG ER TABLET PO SCH ×2 (08:30→12:05)
[2019-09-29] MEDS: FUROSEMIDE 40MG TABLET PO SCH (08:30)
[2019-09-29] MEDS: CARVEDILOL 3.125 MG TABLET PO SCH (08:30)
[2019-09-29] MEDS: BUPROPION HCL 75MG TABLET PO SCH (08:30)
[2019-09-29] MEDS: CITALOPRAM HYDROBROMIDE 10MG TABLET PO SCH (08:31)
[2019-09-29] MEDS: LOSARTAN POTASSIUM 50 MG TABLET PO SCH (08:31)
[2019-09-29 12:00] VITALS: BP 121/59
[2019-09-29 14:24] VITALS: BP 121/59
[2019-09-29 16:00] VITALS: BP 120/82
== END 2019-09-29 15:53 | DRG 813 ==
LOC: ER 09:46 → EDBEDREQ 13:09 → ENRESERV 15:14 → 5WST 17:57 → 6EST 22:56 → MICUNO 09-22 12:00 → 5WST 09-23 15:27 → 6EST 09-28 00:40
PROVIDERS: ADMIT Internal Medicine; ATTEND Internal Medicine
PROC: 009U3ZZ Drainage of Spinal Canal, Percutaneous Approach (ICD-10-PCS; principal; 2019-09-22)
DX: M96.842 Postprocedural seroma of a musculoskeletal structure following a musculoskeletal system procedure (principal); I11.0 Hypertensive heart disease with heart failure; I50.23 Acute on chronic systolic (congestive) heart failure; I42.9 Cardiomyopathy, unspecified; I16.0 Hypertensive urgency; J44.9 Chronic obstructive pulmonary disease, unspecified; I08.1 Rheumatic disorders of both mitral and tricuspid valves; F17.200 Nicotine dependence, unspecified, uncomplicated; M48.00 Spinal stenosis, site unspecified; Z20.828 Contact with and (suspected) exposure to other viral communicable diseases; E43 Unspecified severe protein-calorie malnutrition; M47.14 Other spondylosis with myelopathy, thoracic region; Y83.8 Other surgical procedures as the cause of abnormal reaction of the patient, or of later complication, without mention of misadventure at the time of the procedure; G82.20 Paraplegia, unspecified; I25.2 Old myocardial infarction; Z59.0 Homelessness; Z86.73 Personal history of transient ischemic attack (TIA), and cerebral infarction without residual deficits; Z79.82 Long term (current) use of aspirin; Z79.899 Other long term (current) drug therapy; Y92.89 Other specified places as the place of occurrence of the external cause; Z68.22 Body mass index [BMI] 22.0-22.9, adult
CPT/HCPCS: 36415; 71045; 72070; 72146; 76000; 80048; 80053; 80305; 85025; 86850; 86900; 87070; 87075; 93005; 95863; 95925; 95926; 95928; 95929; 95940; 97110; 97162; 97164; 97166; 97530; 97535; 99285; J0360; J0690; J1100; J2250; J2270; J2370; J2405; J2704; J2710; J3010; J3490; J7050; J7121; U0003-CS

== ENCOUNTER 2021-10-16 14:00 | Emergency (ER) | payer OTHER ==
[~2021-10-16] VITALS: Ht 177.8 cm; Wt 80.0 kg
[2021-10-16] MEDS ORDERED: ONDANSETRON HCL 4MG/2ML INJ IV STA (14:42)
[2021-10-16] MEDS ORDERED: MORPHINE SULFATE 4 MG/ML CPJ (NOT FOR IM USE) IV STA (14:42)
[2021-10-16] MEDS ORDERED: SODIUM CHLORIDE 0.9% 1,000 ML IV ONE (14:45)
[2021-10-16 14:54] LABS: EOSINOPHILS % 3.7 % (0.0-5.0); HEMOGLOBIN. 13.6 g/dL (14.0-18.0); LYMPHOCYTES % 33.8 % (20.0-50.0); MEAN CORPUSCULAR VOLUME 89.8 fL (80.0-94.0); MEAN PLATELET VOLUME 8.6 fl (7.4-10.4); MONOCYTES % 7.3 % (2.0-8.0); NEUTROPHILS % 54.2 % (40.0-76.0); PLATELET 178 x1000/uL (130-400); RED BLOOD CELL COUNT 4.67 mill/uL (4.7-6.1); RED CELL DISTRIBUTION WIDTH 15.2 % (11.6-14.6)
[2021-10-16 15:05] LABS: CHLORIDE 104 mEq/L (98-107)
[2021-10-16] MEDS ORDERED: HYDR-4001 MT (16:54)
[2021-10-16] MEDS ORDERED: IBUP-2028 MT (16:54)
[2021-10-16 18:53] VITALS: BP 147/82
== END 2021-10-16 21:47 | disposition home or self-care (01) ==
LOC: ER 14:00
DX: S19.9XXA Unspecified injury of neck, initial encounter (principal); M75.102 Unspecified rotator cuff tear or rupture of left shoulder, not specified as traumatic; M25.552 Pain in left hip; V03.99XA Pedestrian with other conveyance injured in collision with car, pick-up truck or van, unspecified whether traffic or nontraffic accident, initial encounter; Y93.89 Activity, other specified; Y92.89 Other specified places as the place of occurrence of the external cause; Y99.8 Other external cause status
CPT/HCPCS: 36415; 70450; 71045; 72125; 72170; 73030; 80053; 85025; 96361; 96374; 96375; 99285; J2270; J2405; J7030

== ENCOUNTER 2021-10-20 05:51 | Emergency (ER) | payer OTHER ==
[~2021-10-20] VITALS: Ht 170.2 cm; Wt 98.0 kg
[~2021-10-20 05:51] MED LIST changes: -AMLO2.5T45 PO; -ASPI-986 PO; -BUPR75TA3 PO; -CITA10TA16 PO; -DIVAL250 PO; +HYDR-4001 MT; +IBUP-2028 MT; -PARO10TA87 PO; -QUET25TA PO
[2021-10-20 06:34] VITALS: BP 137/77
== END 2021-10-20 10:50 | disposition home or self-care (01) ==
LOC: ER 05:51
DX: H57.89 Other specified disorders of eye and adnexa (principal); Z60.9 Problem related to social environment, unspecified; Z59.02 Unsheltered homelessness; Z91.81 History of falling
CPT/HCPCS: 99281

== ENCOUNTER 2021-10-26 10:50 | Emergency (ER) | payer OTHER, MEDICAID ==
[~2021-10-26] VITALS: Ht 175.3 cm; Wt 80.0 kg
[2021-10-26] MEDS ORDERED: ACETAMINOPHEN 325MG TABLET PO ONE (11:45)
[2021-10-26] MEDS ORDERED: TOPUD MT (14:33)
[2021-10-26 18:25] VITALS: BP 157/102
== END 2021-10-26 18:27 | disposition home or self-care (01) ==
LOC: ER 11:00
DX: M25.562 Pain in left knee (principal); M25.561 Pain in right knee; R07.81 Pleurodynia; E11.9 Type 2 diabetes mellitus without complications; I10 Essential (primary) hypertension
CPT/HCPCS: 73521; 73562; 99284

== ENCOUNTER 2021-11-06 16:54 | Emergency (ER) | payer OTHER, MEDICAID ==
[~2021-11-06] VITALS: Ht 182.9 cm; Wt 73.0 kg
[~2021-11-06 16:54] MED LIST changes: +TOPUD MT
[2021-11-06] MEDS ORDERED: IBUPROFEN 400MG TABLET PO ONE (21:00)
[2021-11-07 05:55] VITALS: BP 105/68
== END 2021-11-07 06:00 | disposition home or self-care (01) ==
LOC: ER 16:54
DX: G89.29 Other chronic pain (principal); M79.672 Pain in left foot; M79.671 Pain in right foot; I10 Essential (primary) hypertension; E11.9 Type 2 diabetes mellitus without complications; Z60.9 Problem related to social environment, unspecified
CPT/HCPCS: 99283